=== PATIENT | male | born 1965 | race African-American/Black ===

== ENCOUNTER 2017-08-08 13:49 | Emergency (ER) | payer MEDICAID ==
[2017-08-08 16:19] LABS: URINE PH (Dip) POC 5.5 (5.0-8.5)
[2017-08-08 16:19] LABS: URINE BLOOD (Dip) POC 1+ (NEGATIVE); URINE GLUCOSE (Dip) POC Negative (NEGATIVE); URINE KETONES (Dip) POC Negative (NEGATIVE); URINE LEUKOCYTE EST (Dip) POC Negative (NEGATIVE); URINE NITRITE (Dip) POC Negative (NEGATIVE); URINE TOTAL PROTEIN POC 1+ (NEGATIVE)
== END 2017-08-08 17:13 | disposition home or self-care (01) ==
LOC: FTE 13:49
DX: R33.9 Retention of urine, unspecified (principal); I10 Essential (primary) hypertension
CPT/HCPCS: 51702; 81003; 99283-25

== ENCOUNTER 2018-11-08 17:09 | Inpatient (IN) | payer OTHER, MEDICAID ==
[2018-11-08] MEDS: ACETAMINOPHEN 325 MG TAB PO (17:38)
[2018-11-08] MEDS: CEFTRIAXONE 1 GM/50 ML (PMX) 50 ML IVPB (17:59)
[2018-11-08] MEDS: SODIUM CHLORIDE 0.9% 1L BAG IV* (17:59)
[2018-11-08 18:06] LABS: WHITE BLOOD COUNT 5.6 10^3/ul (4.8-10.8)
[2018-11-08 18:06] LABS: ADD MAN DIFF? NO; BASOPHILS % 0.4 % (0.0-2.0); EOSINOPHILS % 0.2 % (0.0-7.0); HEMATOCRIT 30.2 % (42.0-52.0); HEMOGLOBIN 9.6 g/dl (14.0-18.0); LYMPHOCYTES # 0.7 10^3/ul (0.8-2.9); LYMPHOCYTES % 12.6 % (15.0-51.0); MEAN CORPUSCULAR HEMOGLOBIN 28.5 pg (29.0-33.0); MEAN CORPUSCULAR HGB CONC 31.8 g/dl (32.0-37.0); MEAN CORPUSCULAR VOLUME 89.6 fl (82.0-101.0); MEAN PLATELET VOLUME 9.2 fl (7.4-10.4); MONOCYTE # 0.7 10^3/ul (0.3-0.9); MONOCYTES % 12.9 % (0.0-11.0); NEUTROPHIL # 4.1 10^3/ul (1.6-7.5); NEUTROPHILS % 71.8 % (39.0-77.0); PLATELET COUNT 162 10^3/UL (140-415); RED BLOOD COUNT 3.37 10^6/ul (4.70-6.10)
[2018-11-08 18:26] LABS: INR 1.18; PARTIAL THROMBOPLASTIN TIME 31.6 Sec (23.0-35.0); PROTIME 15.1 Sec (11.9-14.9); PT RATIO 1.2
[2018-11-08 18:32] LABS: ALANINE AMINOTRANSFERASE 10 IU/L (13-69); ALBUMIN 2.9 g/dl (3.3-4.9); ALKALINE PHOSPHATASE 964 IU/L (42-121); ANION GAP 12 (5-13); ASPARTATE AMINO TRANSFERASE 25 IU/L (15-46); BILIRUBIN,INDIRECT 0.4 mg/dl (0-1.1); BILIRUBIN,TOTAL 0.4 mg/dl (0.2-1.3); BLOOD UREA NITROGEN 28 mg/dl (7-20); CARBON DIOXIDE 21 mmol/L (21-31); CHLORIDE 102 mmol/L (97-110); CREATININE 0.82 mg/dl (0.61-1.24); Estimated GFR > 60 mL/min (>60); GLUCOSE 86 mg/dl (70-220); POTASSIUM 4.2 mmol/L (3.5-5.1); SODIUM 135 mmol/L (135-144); TOTAL PROTEIN 5.8 g/dl (6.1-8.1)
[2018-11-08 18:44] LABS: TROPONIN-I < 0.012 ng/ml (0.000-0.120)
[2018-11-08 19:54] LABS: ADD UMIC YES; UR ASCORBIC ACID NEGATIVE (NEGATIVE); UR BACTERIA FEW /HPF (NONE SEEN); UR BILIRUBIN (Dip) NEGATIVE (NEGATIVE); UR BLOOD (Dip) 2+ mg/dL (NEGATIVE); UR BUDDING YEAST MODERATE /HPF (NONE SEEN); UR CLARITY CLOUDY (CLEAR); UR COLOR RED (YELLOW); UR GLUCOSE (Dip) 1+ mg/dL (NEGATIVE); UR KETONES (Dip) NEGATIVE (NEGATIVE); UR LEUKOCYTE ESTERASE (Dip) NEGATIVE Leu/ul (NEGATIVE); UR NITRITE (Dip) NEGATIVE (NEGATIVE); UR RBC > 182 /HPF (0-5); UR SPECIFIC GRAVITY (Dip) 1.014 (1.003-1.030); UR TOTAL PROTEIN (Dip) 2+ mg/dl (NEGATIVE); UR UROBILINOGEN (Dip) NEGATIVE (NEGATIVE); UR WBC > 182 /HPF (0-5)
[2018-11-08] MEDS ORDERED: ONDANSETRON 4 MG INJ IV (20:00)
[2018-11-08] MEDS: PIPER-TAZO 3.375 GM IV (PMX) 100 ML IVPB (20:33)
[2018-11-08 22:23] LABS: LACTIC ACID 3.3 mmol/L (0.5-2.0)
[2018-11-08] MEDS: SOD CHLORIDE 0.9% 1,000 ML IV (23:00)
[2018-11-09] MEDS ORDERED: HYDROCODONE/APAP (10/325) TAB PO (01:00)
[2018-11-09] MEDS ORDERED: DOCUSATE SODIUM 100 MG CAP PO (01:00)
[2018-11-09] MEDS ORDERED: PIPER-TAZO 3.375 GM IV (PMX) 100 ML IVPB (02:00)
[2018-11-09] MEDS ORDERED: PENDING SANTYL ORDER FOR WOUND CARE XX (02:30)
[2018-11-09] MEDS: PANTOPRAZOLE (EC) 40 MG TAB PO (05:37)
[2018-11-09] MEDS: PIPER-TAZO 3.375 GM IV (PMX) 100 ML IVPB ×3 (05:37→22:29)
[2018-11-09] MEDS: METOPROLOL 25 MG TAB PO ×2 (09:00→22:27)
[2018-11-09] MEDS: FOLIC ACID 1 MG TAB PO ×2 (09:35→22:28)
[2018-11-09] MEDS: GABAPENTIN 300 MG CAP PO ×2 (09:35→22:28)
[2018-11-09] MEDS: FINASTERIDE 5 MG TAB PO (09:36)
[2018-11-09] MEDS: CYANOCOBALAMIN 500 MCG TAB PO ×2 (09:36→22:28)
[2018-11-09] MEDS: THIAMINE 100 MG TAB PO ×2 (09:36→22:28)
[2018-11-09] MEDS: ACETAMINOPHEN 325 MG TAB PO ×2 (11:52→16:43)
[2018-11-09] MEDS: SOD CHLORIDE 0.9% 1,000 ML IV ×2 (11:53→22:26)
[2018-11-09] MEDS: TAMSULOSIN (SR) 0.4 MG CAP PO (22:28)
[2018-11-10] MEDS: GUAIFENESIN/DM 5ML CUP PO ×3 (03:34→21:51)
[2018-11-10] MEDS: SOD CHLORIDE 0.9% 1,000 ML IV ×2 (05:00→15:00)
[2018-11-10] MEDS: PIPER-TAZO 3.375 GM IV (PMX) 100 ML IVPB ×2 (05:26→14:00)
[2018-11-10] MEDS: PANTOPRAZOLE (EC) 40 MG TAB PO (05:29)
[2018-11-10] MEDS: FOLIC ACID 1 MG TAB PO ×2 (09:22→21:50)
[2018-11-10] MEDS: FINASTERIDE 5 MG TAB PO (09:22)
[2018-11-10] MEDS: CYANOCOBALAMIN 500 MCG TAB PO ×2 (09:22→21:50)
[2018-11-10] MEDS: GABAPENTIN 300 MG CAP PO ×2 (09:23→21:50)
[2018-11-10] MEDS: METOPROLOL 25 MG TAB PO ×2 (09:23→21:00)
[2018-11-10] MEDS: THIAMINE 100 MG TAB PO ×2 (09:24→21:50)
[2018-11-10] MEDS: FLUCONAZOLE 200 MG TAB PO (18:57)
[2018-11-10] MEDS: HYDROCODONE/APAP (5/325) TAB PO (18:58)
[2018-11-10] MEDS: TAMSULOSIN (SR) 0.4 MG CAP PO (21:50)
== END 2018-11-10 23:15 | disposition home or self-care (01) | DRG 202 ==
LOC: E/R 17:09 → TEL 19:58
DX: J20.9 Acute bronchitis, unspecified (principal); N39.0 Urinary tract infection, site not specified; C79.51 Secondary malignant neoplasm of bone; R33.9 Retention of urine, unspecified; I10 Essential (primary) hypertension; C61 Malignant neoplasm of prostate; R31.0 Gross hematuria; Z79.818 Long term (current) use of other agents affecting estrogen receptors and estrogen levels
CPT/HCPCS: 71045; 80053; 81001; 83605; 84484; 85025; 85610; 85730; 87040-91; 87045; 87075; 87081; 87086; 93005; 96374; 99285-25

== ENCOUNTER 2018-12-20 13:28 | Inpatient (IN) | payer OTHER ==
[2018-12-20 14:21] LABS: ABNORMAL IP MESSAGE 1; BASOPHILS % 0.2 % (0.0-2.0); HEMATOCRIT 14.5 % (42.0-52.0); LYMPHOCYTES # 0.2 10^3/ul (0.8-2.9); LYMPHOCYTES % 4.1 % (15.0-51.0); MEAN CORPUSCULAR HEMOGLOBIN 29.9 pg (29.0-33.0); MEAN CORPUSCULAR HGB CONC 29.7 g/dl (32.0-37.0); MEAN CORPUSCULAR VOLUME 100.7 fl (82.0-101.0); MEAN PLATELET VOLUME 9.8 fl (7.4-10.4); MONOCYTE # 0.2 10^3/ul (0.3-0.9); MONOCYTES % 3.4 % (0.0-11.0); NEUTROPHIL # 4.6 10^3/ul (1.6-7.5); NEUTROPHILS % 86.7 % (39.0-77.0); NUCLEATED RED BLOOD CELLS% 0.4 /100WBC (0.0-0.0); PLATELET COUNT 143 10^3/UL (140-415); POSITIVE DIFF @See below; RED BLOOD COUNT 1.44 10^6/ul (4.70-6.10); RED CELL DISTRIBUTION WIDTH 19.2 % (11.5-14.5)
[2018-12-20 14:21] LABS: WHITE BLOOD COUNT 5.3 10^3/ul (4.8-10.8)
[2018-12-20 14:31] LABS: ADD MAN DIFF? NO
[2018-12-20] MEDS: SODIUM CHLORIDE 0.9% 1L BAG IV* ×2 (14:33→22:16)
[2018-12-20 14:41] LABS: ALANINE AMINOTRANSFERASE 14 IU/L (13-69); ALBUMIN 2.2 g/dl (3.3-4.9); ALBUMIN/GLOBULIN RATIO 0.66; ALKALINE PHOSPHATASE 335 IU/L (42-121); AMYLASE 86 U/L (11-123); ANION GAP 9 (5-13); ASPARTATE AMINO TRANSFERASE < 8 IU/L (15-46); BILIRUBIN,INDIRECT 0.4 mg/dl (0-1.1); BILIRUBIN,TOTAL 0.4 mg/dl (0.2-1.3); BLOOD UREA NITROGEN 14 mg/dl (7-20); CALCIUM 7.6 mg/dl (8.4-10.2); CARBON DIOXIDE 22 mmol/L (21-31); CHLORIDE 100 mmol/L (97-110); CREATININE 0.41 mg/dl (0.61-1.24); Estimated GFR > 60 mL/min (>60); GLUCOSE 105 mg/dl (70-220); LIPASE 101 U/L (23-300); POTASSIUM 4.3 mmol/L (3.5-5.1); SODIUM 131 mmol/L (135-144); TOTAL PROTEIN 5.5 g/dl (6.1-8.1)
[2018-12-20 14:42] LABS: HEMOGLOBIN 4.3 g/dl (14.0-18.0); INR 1.19; PARTIAL THROMBOPLASTIN TIME 35.3 Sec (23.0-35.0); PROTIME 15.2 Sec (11.9-14.9); PT RATIO 1.2
[2018-12-20 14:43] LABS: PATH REVIEW? YES
[2018-12-20 14:53] LABS: TROPONIN-I < 0.012 ng/ml (0.000-0.120)
[2018-12-20] MEDS: CEFEPIME 2GM/50 ML (PMX) 50 ML IVPB (14:54)
[2018-12-20] MEDS: VANCOMYCIN 1 GM (PMX) 250 ML IVPB (15:38)
[2018-12-20 15:46] LABS: ANISOCYTOSIS 1+ (0-0); BAND NEUTROPHILS % (M) 19 % (0-4); EOSINOPHILS % (M) 1 % (0-7); HYPOCHROMASIA 2+ (0-0); LYMPHOCYTES #M 0.1 10^3/ul (0.8-2.9); LYMPHOCYTES % (M) 3 % (15-51); MICROCYTOSIS 1+ (0-0); MONOCYTE #M 0.1 10^3/ul (0.3-0.9); MONOCYTES % (M) 2 % (0-11); PLATELET ESTIMATE NORMAL; POIKILOCYTOSIS 2+ (0-0); POLYCHROMASIA 1+ (0-0); SEGMENTED NEUTROPHILS (M) % 75 % (39-77); SMUDGE%M 1 % (0-0); TEAR DROP CELLS 1+ (0-0)
[2018-12-20] MEDS ORDERED: ACETAMINOPHEN 325 MG TAB PO (17:00)
[2018-12-20] MEDS ORDERED: ONDANSETRON 4 MG INJ IV (17:00)
[2018-12-20 17:09] LABS: ADD UMIC YES; UR ASCORBIC ACID NEGATIVE (NEGATIVE); UR BILIRUBIN (Dip) NEGATIVE (NEGATIVE); UR BLOOD (Dip) 2+ mg/dL (NEGATIVE); UR BUDDING YEAST FEW /HPF (NONE SEEN); UR CLARITY CLOUDY (CLEAR); UR COLOR YELLOW (YELLOW); UR GLUCOSE (Dip) NEGATIVE (NEGATIVE); UR KETONES (Dip) TRACE mg/dL (NEGATIVE); UR LEUKOCYTE ESTERASE (Dip) 2+ Leu/ul (NEGATIVE); UR NITRITE (Dip) NEGATIVE (NEGATIVE); UR RBC 27 /HPF (0-5); UR SPECIFIC GRAVITY (Dip) 1.018 (1.003-1.030); UR TOTAL PROTEIN (Dip) 1+ mg/dl (NEGATIVE); UR UROBILINOGEN (Dip) NEGATIVE (NEGATIVE); UR WBC > 182 /HPF (0-5)
[2018-12-20] MEDS ORDERED: morphine (ER) 15 MG TAB PO (18:00)
[2018-12-20 19:06] LABS: LACTIC ACID 2.8 mmol/L (0.5-2.0)
[2018-12-20] MEDS: SOD CHLORIDE 0.9% 1,000 ML IV (22:46)
[2018-12-20 23:09] LABS: IMMEDIATE SPIN CROSSMATCH 1 6
[2018-12-21] MEDS: DEXTROSE 5%-0.45% NACL 1,000 ML IV ×4 (02:17→21:02)
[2018-12-21] MEDS: PANTOPRAZOLE (EC) 40 MG TAB PO (06:16)
[2018-12-21 06:41] LABS: WHITE BLOOD COUNT 5.8 10^3/ul (4.8-10.8)
[2018-12-21 06:41] LABS: ABNORMAL IP MESSAGE 1; HEMATOCRIT 20.9 % (42.0-52.0); MEAN CORPUSCULAR HEMOGLOBIN 31.4 pg (29.0-33.0); MEAN PLATELET VOLUME 10.1 fl (7.4-10.4); NUCLEATED RED BLOOD CELLS% 0.5 /100WBC (0.0-0.0); PLATELET COUNT 115 10^3/UL (140-415); POSITIVE DIFF @See below; RED CELL DISTRIBUTION WIDTH 17.2 % (11.5-14.5)
[2018-12-21 06:48] LABS: ADD MAN DIFF? YES; HEMOGLOBIN 6.9 g/dl (14.0-18.0)
[2018-12-21] MEDS: FINASTERIDE 5 MG TAB PO (08:47)
[2018-12-21] MEDS: PIPER-TAZO 3.375 GM IV (PMX) 100 ML IVPB ×3 (08:47→21:02)
[2018-12-21] MEDS: SENNA TAB PO (08:47)
[2018-12-21] MEDS: TAMSULOSIN (SR) 0.4 MG CAP PO (08:47)
[2018-12-21 10:09] LABS: ANISOCYTOSIS 1+ (0-0); BAND NEUTROPHILS #M 1.9 10^3/ul (0.0-0.6); BAND NEUTROPHILS % (M) 33 % (0-4); BURR CELLS 3+ (0-0); LYMPHOCYTES % (M) 1 % (15-51); METAMYELOCYTES %M 1 % (0-0); MONOCYTE #M 0.1 10^3/ul (0.3-0.9); MONOCYTES % (M) 3 % (0-11); MYELOCYTES % (M) 1 % (0-0); PLATELET ESTIMATE DECREASED; POIKILOCYTOSIS 3+ (0-0); POLYCHROMASIA 3+ (0-0); SEG NEUT #M 3.6 10^3/ul (1.6-7.5); SEGMENTED NEUTROPHILS (M) % 61 % (39-77); SMUDGE%M 24 % (0-0); TEAR DROP CELLS 1+ (0-0)
[2018-12-21] MEDS ORDERED: PIPER-TAZO 3.375 GM IV (PMX) 100 ML IVPB (14:00)
[2018-12-21] MEDS: ALBUMIN HUMAN 25% 100 ML IV (15:53)
[2018-12-22] MEDS: DEXTROSE 5%-0.45% NACL 1,000 ML IV ×2 (05:48→21:34)
[2018-12-22] MEDS: PIPER-TAZO 3.375 GM IV (PMX) 100 ML IVPB ×3 (05:49→21:31)
[2018-12-22] MEDS: PANTOPRAZOLE (EC) 40 MG TAB PO (05:49)
[2018-12-22 07:19] LABS: ADD MAN DIFF? NO
[2018-12-22 07:27] LABS: ABNORMAL IP MESSAGE 1; BASOPHILS % 0.2 % (0.0-2.0); EOSINOPHILS % 0.2 % (0.0-7.0); HEMATOCRIT 26.7 % (42.0-52.0); HEMOGLOBIN 8.5 g/dl (14.0-18.0); LYMPHOCYTES # 0.2 10^3/ul (0.8-2.9); MEAN CORPUSCULAR HEMOGLOBIN 29.9 pg (29.0-33.0); MEAN CORPUSCULAR HGB CONC 31.8 g/dl (32.0-37.0); MEAN PLATELET VOLUME 10.1 fl (7.4-10.4); MONOCYTE # 0.3 10^3/ul (0.3-0.9); MONOCYTES % 5.1 % (0.0-11.0); NEUTROPHIL # 4.4 10^3/ul (1.6-7.5); NEUTROPHILS % 88.3 % (39.0-77.0); NUCLEATED RED BLOOD CELLS% 0.6 /100WBC (0.0-0.0); PLATELET COUNT 112 10^3/UL (140-415); POSITIVE DIFF @See below; RED BLOOD COUNT 2.84 10^6/ul (4.70-6.10); RED CELL DISTRIBUTION WIDTH 18.6 % (11.5-14.5)
[2018-12-22 07:49] LABS: ANION GAP 8 (5-13); BLOOD UREA NITROGEN 11 mg/dl (7-20); CALCIUM 8.1 mg/dl (8.4-10.2); CARBON DIOXIDE 19 mmol/L (21-31); CHLORIDE 105 mmol/L (97-110); CREATININE 0.41 mg/dl (0.61-1.24); Estimated GFR > 60 mL/min (>60); GLUCOSE 94 mg/dl (70-220); POTASSIUM 3.6 mmol/L (3.5-5.1); SODIUM 132 mmol/L (135-144)
[2018-12-22] MEDS: SENNA TAB PO (09:05)
[2018-12-22] MEDS: FINASTERIDE 5 MG TAB PO (09:05)
[2018-12-22] MEDS: TAMSULOSIN (SR) 0.4 MG CAP PO (09:05)
[2018-12-22] MEDS ORDERED: VANCOMYCIN IV PER PHARMACY XX (09:30)
[2018-12-22] MEDS: VANCOMYCIN HCL 1.5 GM in SOD CHLORIDE 0.9% 250 ML IVPB ×2 (11:12→22:13)
[2018-12-22] MEDS: BALSAM PERU/CASTOR OIL 60 GM TUBE TOP (21:31)
[2018-12-23 05:56] LABS: ADD MAN DIFF? NO
[2018-12-23] MEDS: PANTOPRAZOLE (EC) 40 MG TAB PO (05:58)
[2018-12-23] MEDS: PIPER-TAZO 3.375 GM IV (PMX) 100 ML IVPB (05:58)
[2018-12-23 06:10] LABS: ABNORMAL IP MESSAGE 1; BASOPHILS % 0.2 % (0.0-2.0); EOSINOPHILS % 0.2 % (0.0-7.0); HEMATOCRIT 23.2 % (42.0-52.0); HEMOGLOBIN 7.5 g/dl (14.0-18.0); LYMPHOCYTES # 0.2 10^3/ul (0.8-2.9); LYMPHOCYTES % 5.8 % (15.0-51.0); MEAN CORPUSCULAR HGB CONC 32.3 g/dl (32.0-37.0); MEAN CORPUSCULAR VOLUME 92.8 fl (82.0-101.0); MEAN PLATELET VOLUME 9.4 fl (7.4-10.4); MONOCYTE # 0.2 10^3/ul (0.3-0.9); MONOCYTES % 5.8 % (0.0-11.0); NEUTROPHIL # 3.5 10^3/ul (1.6-7.5); NEUTROPHILS % 85.3 % (39.0-77.0); PLATELET COUNT 96 10^3/UL (140-415); POSITIVE DIFF @See below; RED CELL DISTRIBUTION WIDTH 18.2 % (11.5-14.5)
[2018-12-23 06:10] LABS: WHITE BLOOD COUNT 4.1 10^3/ul (4.8-10.8)
[2018-12-23] MEDS: SENNA TAB PO (07:40)
[2018-12-23 07:58] LABS: ANION GAP 8 (5-13); BLOOD UREA NITROGEN 10 mg/dl (7-20); CARBON DIOXIDE 18 mmol/L (21-31); CHLORIDE 104 mmol/L (97-110); CREATININE 0.37 mg/dl (0.61-1.24); Estimated GFR > 60 mL/min (>60); GLUCOSE 91 mg/dl (70-220); POTASSIUM 3.2 mmol/L (3.5-5.1); SODIUM 130 mmol/L (135-144)
[2018-12-23] MEDS: FINASTERIDE 5 MG TAB PO (08:52)
[2018-12-23] MEDS: TAMSULOSIN (SR) 0.4 MG CAP PO (08:52)
[2018-12-23] MEDS: BALSAM PERU/CASTOR OIL 60 GM TUBE TOP ×2 (08:53→20:36)
[2018-12-23] MEDS: COLLAGENASE 5 GM (UD JAR) TOP (08:53)
[2018-12-23] MEDS: LEVOFLOXACIN 500 MG TAB PO (10:52)
[2018-12-23] MEDS: LINEZOLID 600 MG/300 ML (PMX) 300 ML IVPB ×2 (10:52→20:36)
[2018-12-23] MEDS: DEXTROSE 5%-0.45% NACL 1,000 ML IV ×2 (10:53→21:15)
[2018-12-24] MEDS: HYDROCODONE/APAP (10/325) TAB PO ×2 (02:01→13:30)
[2018-12-24] MEDS: LEVOFLOXACIN 500 MG TAB PO (05:28)
[2018-12-24] MEDS: PANTOPRAZOLE (EC) 40 MG TAB PO (05:28)
[2018-12-24] MEDS: LINEZOLID 600 MG/300 ML (PMX) 300 ML IVPB ×2 (08:48→22:43)
[2018-12-24] MEDS: TAMSULOSIN (SR) 0.4 MG CAP PO (08:52)
[2018-12-24] MEDS: FINASTERIDE 5 MG TAB PO (08:59)
[2018-12-24] MEDS: BALSAM PERU/CASTOR OIL 60 GM TUBE TOP ×2 (08:59→21:27)
[2018-12-24] MEDS: SENNA TAB PO (08:59)
[2018-12-24] MEDS: COLLAGENASE 5 GM (UD JAR) TOP (08:59)
[2018-12-24] MEDS: ONDANSETRON 4 MG INJ IV (09:40)
[2018-12-24 10:28] LABS: ADD MAN DIFF? NO
[2018-12-24 10:39] LABS: WHITE BLOOD COUNT 3.3 10^3/ul (4.8-10.8)
[2018-12-24 10:39] LABS: ABNORMAL IP MESSAGE 1; BASOPHILS % 0.3 % (0.0-2.0); HEMATOCRIT 23.6 % (42.0-52.0); HEMOGLOBIN 7.7 g/dl (14.0-18.0); LYMPHOCYTES # 0.2 10^3/ul (0.8-2.9); MEAN CORPUSCULAR HEMOGLOBIN 30.3 pg (29.0-33.0); MEAN CORPUSCULAR HGB CONC 32.6 g/dl (32.0-37.0); MEAN CORPUSCULAR VOLUME 92.9 fl (82.0-101.0); MONOCYTE # 0.2 10^3/ul (0.3-0.9); MONOCYTES % 4.8 % (0.0-11.0); NEUTROPHIL # 2.9 10^3/ul (1.6-7.5); NEUTROPHILS % 87.4 % (39.0-77.0); PLATELET COUNT 82 10^3/UL (140-415); POSITIVE DIFF @See below; RED BLOOD COUNT 2.54 10^6/ul (4.70-6.10); RED CELL DISTRIBUTION WIDTH 17.8 % (11.5-14.5)
[2018-12-24 11:14] LABS: CREATINE KINASE < 20 IU/L (23-200)
[2018-12-24 11:15] LABS: ALANINE AMINOTRANSFERASE 14 IU/L (13-69); ALBUMIN 1.6 g/dl (3.3-4.9); ALBUMIN/GLOBULIN RATIO 0.64; ALKALINE PHOSPHATASE 224 IU/L (42-121); ANION GAP 12 (5-13); ASPARTATE AMINO TRANSFERASE < 8 IU/L (15-46); BILIRUBIN,INDIRECT 0.4 mg/dl (0-1.1); BILIRUBIN,TOTAL 0.4 mg/dl (0.2-1.3); BLOOD UREA NITROGEN 10 mg/dl (7-20); CALCIUM 7.7 mg/dl (8.4-10.2); CARBON DIOXIDE 16 mmol/L (21-31); CHLORIDE 102 mmol/L (97-110); CREATININE 0.36 mg/dl (0.61-1.24); Estimated GFR > 60 mL/min (>60); GLUCOSE 117 mg/dl (70-220); MAGNESIUM 1.7 mg/dl (1.7-2.5); SODIUM 130 mmol/L (135-144); TOTAL PROTEIN 4.1 g/dl (6.1-8.1)
[2018-12-24 11:18] LABS: LACTIC ACID 4.9 mmol/L (0.5-2.0)
[2018-12-24] MEDS: SOD CHLORIDE 0.9% 1,000 ML IV ×5 (13:28→23:57)
[2018-12-24] MEDS: POTASSIUM CHLORIDE (SR) 20 MEQ TAB PO ×2 (13:29→21:02)
[2018-12-24] MEDS: SOD CHLORIDE 0.9% 500 ML IV (18:33)
[2018-12-24] MEDS: DAKINS 0.0125%(1/40) 473 ML SOLUTION TP (21:31)
[2018-12-24] MEDS: ACETAMINOPHEN 325 MG TAB PO (21:32)
[2018-12-25] MEDS: MIDODRINE 5 MG TAB PO ×4 (02:01→16:40)
[2018-12-25] MEDS: SOD CHLORIDE 0.9% 1,000 ML IV ×3 (02:01→15:04)
[2018-12-25 03:23] LABS: AADO2 Arterial 15.3 mmHg (7.0-24.0); Allen Test ACCEPTAB; Arterial Base Excess -10.4 mmol/L (-3.0-3); Arterial Blood Gas Oxygen Sat 98.3 mmHG (95.0-98.0); Arterial COHb 0.3 % (0.0-3.0); Arterial Fraction of Oxyhgb 97.4 % (93.0-99.0); Arterial HCO3 16.8 mmol/L (22.0-26.0); Arterial MetHb 0.6 % (0.0-1.5); Arterial pCO2 42.9 mmhg (35-45); MODE NASAL CANNULA; Site Left Radial
[2018-12-25 03:58] LABS: ADD MAN DIFF? NO
[2018-12-25 04:16] LABS: WHITE BLOOD COUNT 4.1 10^3/ul (4.8-10.8)
[2018-12-25 04:16] LABS: ABNORMAL IP MESSAGE 1; BASOPHILS % 0.2 % (0.0-2.0); HEMATOCRIT 23.6 % (42.0-52.0); HEMOGLOBIN 7.6 g/dl (14.0-18.0); LYMPHOCYTES # 0.3 10^3/ul (0.8-2.9); LYMPHOCYTES % 7.5 % (15.0-51.0); MEAN CORPUSCULAR HEMOGLOBIN 30.3 pg (29.0-33.0); MEAN CORPUSCULAR HGB CONC 32.2 g/dl (32.0-37.0); MONOCYTE # 0.3 10^3/ul (0.3-0.9); MONOCYTES % 6.3 % (0.0-11.0); NEUTROPHIL # 3.5 10^3/ul (1.6-7.5); NEUTROPHILS % 84.1 % (39.0-77.0); PLATELET COUNT 90 10^3/UL (140-415); POSITIVE DIFF @See below; RED BLOOD COUNT 2.51 10^6/ul (4.70-6.10); RED CELL DISTRIBUTION WIDTH 17.8 % (11.5-14.5)
[2018-12-25 04:22] LABS: ALANINE AMINOTRANSFERASE 10 IU/L (13-69); ALBUMIN 1.8 g/dl (3.3-4.9); ALBUMIN/GLOBULIN RATIO 0.66; ALKALINE PHOSPHATASE 234 IU/L (42-121); ANION GAP 6 (5-13); ASPARTATE AMINO TRANSFERASE < 8 IU/L (15-46); BILIRUBIN,INDIRECT 0.3 mg/dl (0-1.1); BILIRUBIN,TOTAL 0.3 mg/dl (0.2-1.3); BLOOD UREA NITROGEN 11 mg/dl (7-20); CALCIUM 8.1 mg/dl (8.4-10.2); CARBON DIOXIDE 17 mmol/L (21-31); CHLORIDE 103 mmol/L (97-110); CREATININE 0.39 mg/dl (0.61-1.24); Estimated GFR > 60 mL/min (>60); GLUCOSE 112 mg/dl (70-220); MAGNESIUM 1.7 mg/dl (1.7-2.5); PHOSPHORUS 2.6 mg/dl (2.5-4.9); POTASSIUM 3.7 mmol/L (3.5-5.1); SODIUM 126 mmol/L (135-144); TOTAL PROTEIN 4.5 g/dl (6.1-8.1)
[2018-12-25 04:28] LABS: LACTIC ACID 4.1 mmol/L (0.5-2.0)
[2018-12-25] MEDS: ALBUMIN HUMAN 25% 100 ML IV ×2 (04:28→05:04)
[2018-12-25 04:43] LABS: CREATINE KINASE 20 IU/L (23-200)
[2018-12-25 04:57] LABS: CK INDEX 4.2; CK-MB 0.83 ng/ml (0.0-2.4); TROPONIN-I < 0.012 ng/ml (0.000-0.120)
[2018-12-25] MEDS: LEVOFLOXACIN 500 MG TAB PO (05:04)
[2018-12-25] MEDS: PANTOPRAZOLE (EC) 40 MG TAB PO (05:04)
[2018-12-25 06:58] LABS: Allen Test ACCEPTAB; Arterial Base Excess -7.8 mmol/L (-3.0-3); Arterial Blood Gas Oxygen Sat 98.6 mmHG (95.0-98.0); Arterial COHb 0.3 % (0.0-3.0); Arterial Fraction of Oxyhgb 97.8 % (93.0-99.0); Arterial HCO3 17.6 mmol/L (22.0-26.0); Arterial MetHb 0.5 % (0.0-1.5); Arterial pCO2 35.1 mmhg (35-45); Blood Gas IEPAP 18/8; Blood Gas PS 10; MODE MASK - BIPAP; Site Left Radial
[2018-12-25] MEDS: LINEZOLID 600 MG/300 ML (PMX) 300 ML IVPB ×2 (08:35→22:10)
[2018-12-25] MEDS: TAMSULOSIN (SR) 0.4 MG CAP PO (08:41)
[2018-12-25] MEDS: FINASTERIDE 5 MG TAB PO (08:42)
[2018-12-25] MEDS: SENNA TAB PO (08:42)
[2018-12-25] MEDS: DAKINS 0.0125%(1/40) 473 ML SOLUTION TP ×2 (09:00→22:48)
[2018-12-25] MEDS: BALSAM PERU/CASTOR OIL 60 GM TUBE TOP ×2 (09:00→21:40)
[2018-12-25 10:02] LABS: CREATINE KINASE < 20 IU/L (23-200)
[2018-12-25 10:12] LABS: CK-MB 0.89 ng/ml (0.0-2.4); TROPONIN-I < 0.012 ng/ml (0.000-0.120)
[2018-12-25] MEDS: SODIUM BICARBONATE (IV ADD) 150 MEQ in DEXTROSE 5% 1,000 ML IV ×2 (10:30→22:48)
[2018-12-25] MEDS: MEROPENEM 1 GM/50ML(PMX) 50 ML IVPB ×2 (16:40→23:59)
[2018-12-25 18:17] LABS: LACTIC ACID 3.5 mmol/L (0.5-2.0)
[2018-12-25 18:52] LABS: PROCALCITONIN 1.75 ng/mL (0.00-0.10)
[2018-12-26 05:04] LABS: ADD MAN DIFF? NO
[2018-12-26 05:09] LABS: ABNORMAL IP MESSAGE 1; HEMATOCRIT 24.6 % (42.0-52.0); HEMOGLOBIN 7.8 g/dl (14.0-18.0); LYMPHOCYTES # 0.2 10^3/ul (0.8-2.9); LYMPHOCYTES % 6.4 % (15.0-51.0); MEAN CORPUSCULAR HEMOGLOBIN 29.5 pg (29.0-33.0); MEAN CORPUSCULAR HGB CONC 31.7 g/dl (32.0-37.0); MEAN CORPUSCULAR VOLUME 93.2 fl (82.0-101.0); MEAN PLATELET VOLUME 10.3 fl (7.4-10.4); MONOCYTE # 0.2 10^3/ul (0.3-0.9); MONOCYTES % 6.1 % (0.0-11.0); NEUTROPHIL # 3.2 10^3/ul (1.6-7.5); PLATELET COUNT 99 10^3/UL (140-415); POSITIVE DIFF @See below; RED BLOOD COUNT 2.64 10^6/ul (4.70-6.10)
[2018-12-26 05:09] LABS: WHITE BLOOD COUNT 3.8 10^3/ul (4.8-10.8)
[2018-12-26 05:31] LABS: ALANINE AMINOTRANSFERASE 10 IU/L (13-69); ALKALINE PHOSPHATASE 215 IU/L (42-121); ANION GAP 9 (5-13); ASPARTATE AMINO TRANSFERASE 9 IU/L (15-46); BILIRUBIN,INDIRECT 0.3 mg/dl (0-1.1); BILIRUBIN,TOTAL 0.3 mg/dl (0.2-1.3); BLOOD UREA NITROGEN 12 mg/dl (7-20); CALCIUM 8.5 mg/dl (8.4-10.2); CARBON DIOXIDE 18 mmol/L (21-31); CHLORIDE 101 mmol/L (97-110); CREATININE 0.45 mg/dl (0.61-1.24); Estimated GFR > 60 mL/min (>60); GLUCOSE 86 mg/dl (70-220); MAGNESIUM 1.8 mg/dl (1.7-2.5); PHOSPHORUS 2.7 mg/dl (2.5-4.9); POTASSIUM 3.4 mmol/L (3.5-5.1); SODIUM 128 mmol/L (135-144); TOTAL PROTEIN 4.5 g/dl (6.1-8.1)
[2018-12-26] MEDS: MEROPENEM 1 GM/50ML(PMX) 50 ML IVPB ×3 (05:45→21:33)
[2018-12-26] MEDS: PANTOPRAZOLE (EC) 40 MG TAB PO (05:45)
[2018-12-26 06:23] LABS: PROSTATE SPECIFIC ANTIGEN 32.3 ng/ml (0.0-4.0)
[2018-12-26 07:09] LABS: ANISOCYTOSIS 1+ (0-0); BAND NEUTROPHILS #M 0.4 10^3/ul (0.0-0.6); BAND NEUTROPHILS % (M) 12 % (0-4); BURR CELLS 2+ (0-0); ERYTHROBLAST% (NRBC) (M) 1 % (0-0); GIANT THROMBO% (M) 1 % (0-0); LYMPHOCYTES #M 0.2 10^3/ul (0.8-2.9); LYMPHOCYTES % (M) 6 % (15-51); MONOCYTE #M 0.1 10^3/ul (0.3-0.9); MONOCYTES % (M) 4 % (0-11); MYELOCYTES % (M) 2 % (0-0); PLATELET ESTIMATE DECREASED; POIKILOCYTOSIS 2+ (0-0); POLYCHROMASIA 1+ (0-0); SEG NEUT #M 2.9 10^3/ul (1.6-7.5); SEGMENTED NEUTROPHILS (M) % 76 % (39-77); SMUDGE%M 32 % (0-0); SPHEROCYTES 1+ (0-0)
[2018-12-26] MEDS: SENNA TAB PO (09:00)
[2018-12-26] MEDS: MIDODRINE 5 MG TAB PO ×3 (09:32→17:01)
[2018-12-26] MEDS: TAMSULOSIN (SR) 0.4 MG CAP PO (09:32)
[2018-12-26] MEDS: FINASTERIDE 5 MG TAB PO (09:32)
[2018-12-26] MEDS: SODIUM BICARBONATE (IV ADD) 150 MEQ in DEXTROSE 5% 1,000 ML IV ×2 (09:33→21:00)
[2018-12-26] MEDS: BALSAM PERU/CASTOR OIL 60 GM TUBE TOP ×2 (09:35→21:35)
[2018-12-26] MEDS: HYDROCODONE/APAP (10/325) TAB PO (09:38)
[2018-12-26] MEDS: DAKINS 0.0125%(1/40) 473 ML SOLUTION TP ×3 (09:38→23:35)
[2018-12-26] MEDS ORDERED: POTASSIUM CHLORIDE (SR) 20 MEQ TAB PO (10:07)
[2018-12-26] MEDS: SOD CHLORIDE 0.9% 1,000 ML IV ×2 (10:14→19:54)
[2018-12-26] MEDS: POTASSIUM CHLORIDE (SR) 20 MEQ TAB PO ×2 (10:14→10:56)
[2018-12-26] MEDS: ALBUMIN HUMAN 25% 50 ML IV ×2 (10:15→17:02)
[2018-12-26] MEDS: LINEZOLID 600 MG/300 ML (PMX) 300 ML IVPB (10:43)
[2018-12-26] MEDS: FUROSEMIDE 40 MG INJ IV (10:44)
[2018-12-26] MEDS: SILVER NITRATE SWAB TOP (14:50)
[2018-12-26] MEDS: NORepinephrine 8MG/250 ML (PMX 250 ML IV (20:47)
[2018-12-26] MEDS: DAPTOMYCIN 500 MG in SOD CHLORIDE 0.9% 100 ML IVPB (21:33)
[2018-12-27] MEDS: ALBUMIN HUMAN 25% 50 ML IV (01:15)
[2018-12-27 05:15] LABS: WHITE BLOOD COUNT 3.5 10^3/ul (4.8-10.8)
[2018-12-27 05:15] LABS: ABNORMAL IP MESSAGE 1; HEMOGLOBIN 8.3 g/dl (14.0-18.0); MEAN CORPUSCULAR HEMOGLOBIN 30.3 pg (29.0-33.0); MEAN CORPUSCULAR HGB CONC 31.9 g/dl (32.0-37.0); MEAN CORPUSCULAR VOLUME 94.9 fl (82.0-101.0); MEAN PLATELET VOLUME 10.4 fl (7.4-10.4); PLATELET COUNT 122 10^3/UL (140-415); POSITIVE DIFF @See below; RED BLOOD COUNT 2.74 10^6/ul (4.70-6.10); RED CELL DISTRIBUTION WIDTH 18.2 % (11.5-14.5)
[2018-12-27 05:24] LABS: ADD MAN DIFF? YES
[2018-12-27 05:35] LABS: ALANINE AMINOTRANSFERASE 9 IU/L (13-69); ALBUMIN 2.4 g/dl (3.3-4.9); ALBUMIN/GLOBULIN RATIO 0.96; ALKALINE PHOSPHATASE 215 IU/L (42-121); ANION GAP 7 (5-13); ASPARTATE AMINO TRANSFERASE 34 IU/L (15-46); BILIRUBIN,INDIRECT 0.3 mg/dl (0-1.1); BILIRUBIN,TOTAL 0.3 mg/dl (0.2-1.3); BLOOD UREA NITROGEN 15 mg/dl (7-20); CALCIUM 8.8 mg/dl (8.4-10.2); CARBON DIOXIDE 19 mmol/L (21-31); CHLORIDE 101 mmol/L (97-110); CREATININE 0.48 mg/dl (0.61-1.24); Estimated GFR > 60 mL/min (>60); GLUCOSE 116 mg/dl (70-220); MAGNESIUM 1.7 mg/dl (1.7-2.5); PHOSPHORUS 3.3 mg/dl (2.5-4.9); POTASSIUM 4.3 mmol/L (3.5-5.1); SODIUM 127 mmol/L (135-144); TOTAL PROTEIN 4.9 g/dl (6.1-8.1)
[2018-12-27] MEDS: PANTOPRAZOLE (EC) 40 MG TAB PO (06:00)
[2018-12-27] MEDS: MEROPENEM 1 GM/50ML(PMX) 50 ML IVPB (06:01)
[2018-12-27] MEDS: NORepinephrine 8MG/250 ML (PMX 250 ML IV ×4 (06:11→21:49)
[2018-12-27 06:32] LABS: CREATINE KINASE 132 IU/L (23-200)
[2018-12-27 07:20] LABS: ANISOCYTOSIS 1+ (0-0); BAND NEUTROPHILS #M 0.2 10^3/ul (0.0-0.6); BAND NEUTROPHILS % (M) 6 % (0-4); BURR CELLS 1+ (0-0); ERYTHROBLAST% (NRBC) (M) 1 % (0-0); LYMPHOCYTES #M 0.6 10^3/ul (0.8-2.9); LYMPHOCYTES % (M) 19 % (15-51); METAMYELOCYTES %M 2 % (0-0); MONOCYTE #M 0.1 10^3/ul (0.3-0.9); MONOCYTES % (M) 5 % (0-11); MYELOCYTES % (M) 1 % (0-0); PLATELET ESTIMATE DECREASED; POLYCHROMASIA 1+ (0-0); REACTIVE LYMPHOCYTES% (M) 1 % (0-0); SEG NEUT #M 2.3 10^3/ul (1.6-7.5); SEGMENTED NEUTROPHILS (M) % 66 % (39-77); SMUDGE%M 38 % (0-0)
[2018-12-27] MEDS: SODIUM BICARBONATE (IV ADD) 150 MEQ in DEXTROSE 5% 1,000 ML IV ×2 (08:30→17:01)
[2018-12-27] MEDS: FINASTERIDE 5 MG TAB PO (09:00)
[2018-12-27] MEDS: BALSAM PERU/CASTOR OIL 60 GM TUBE TOP ×2 (09:00→21:21)
[2018-12-27] MEDS: TAMSULOSIN (SR) 0.4 MG CAP PO (09:00)
[2018-12-27] MEDS: MIDODRINE 5 MG TAB PO ×3 (09:00→16:53)
[2018-12-27] MEDS: DAKINS 0.0125%(1/40) 473 ML SOLUTION TP ×2 (09:00→21:21)
[2018-12-27] MEDS: SENNA TAB PO (09:00)
[2018-12-27] MEDS: CEFTRIAXONE 1 GM/50 ML (PMX) 50 ML IVPB (13:00)
[2018-12-27] MEDS: SOD CHLORIDE 0.9% 1,000 ML IV (13:00)
[2018-12-27] MEDS: LIDOCAINE 1% (MPF) 5 ML VIAL SC (13:30)
[2018-12-27] MEDS: DAPTOMYCIN 500 MG in SOD CHLORIDE 0.9% 100 ML IVPB (21:20)
[2018-12-28] MEDS ORDERED: ALBUTEROL/IPRATROPIUM (NEB) 3 ML AMP HHN (02:00)
[2018-12-28] MEDS ORDERED: ACETYLCYSTEINE 20% 4 ML VIAL NEB (02:00)
== END 2018-12-27 22:40 | disposition expired | DRG 981 ==
LOC: TEL 12-24 06:58 → ICU 16:38 → E/R 13:28 → ICU 12-25 03:54
PROC: 30253N1 (ICD-10-PCS; 2018-12-20)
PROC: 0KBP0ZZ Excision of Left Hip Muscle, Open Approach (ICD-10-PCS; principal; 2018-12-26)
PROC: 0KBN0ZZ Excision of Right Hip Muscle, Open Approach (ICD-10-PCS; 2018-12-26)
DX: T83.511A Infection and inflammatory reaction due to indwelling urethral catheter, initial encounter (principal); L89.154 Pressure ulcer of sacral region, stage 4; A41.01 Sepsis due to Methicillin susceptible Staphylococcus aureus; J96.01 Acute respiratory failure with hypoxia; E43 Unspecified severe protein-calorie malnutrition; A41.51 Sepsis due to Escherichia coli [E. coli]; R65.21 Severe sepsis with septic shock; G82.20 Paraplegia, unspecified; E87.1 Hypo-osmolality and hyponatremia; E87.2 Acidosis; D61.818 Other pancytopenia; I42.9 Cardiomyopathy, unspecified; C79.51 Secondary malignant neoplasm of bone; N39.0 Urinary tract infection, site not specified; Z16.21 Resistance to vancomycin; C61 Malignant neoplasm of prostate; L89.620 Pressure ulcer of left heel, unstageable; L89.610 Pressure ulcer of right heel, unstageable; D63.0 Anemia in neoplastic disease; G89.29 Other chronic pain; M54.9 Dorsalgia, unspecified; I10 Essential (primary) hypertension; E83.51 Hypocalcemia; Z68.25 Body mass index [BMI] 25.0-25.9, adult; Z74.01 Bed confinement status; L89.890 Pressure ulcer of other site, unstageable
CPT/HCPCS: 36415; 36430; 36600; 71045; 76775; 80048; 80053; 81001; 82150; 82550; 82553; 82803; 82962; 83605; 83690; 83735; 84100; 84145; 84153; 84154; 84484; 85025; 85610; 85730; 86850; 86900; 86901; 86920; 87040-91; 87070; 87075; 87081; 87086; 93005; 94660; 96374; 96375; 99285-25